=== PATIENT | female | born 1940 | race Caucasian/White ===

== ENCOUNTER → 2021-12-03 | Outpatient (CLI) | payer MEDICARE | LOC: MC.RAD 13:05 | DX: Z12.31 Encounter for screening mammogram for malignant neoplasm of breast (principal) ==

== ENCOUNTER 2022-09-11 07:28 | Day surgery (SDC) | payer MEDICARE ==
[~2022-09-11] VITALS: Ht 157.5 cm; Wt 77.4 kg
[2022-09-11] MEDS ORDERED: LIPITOR 40MG TA40 MG PO (08:17)
[2022-09-11] MEDS ORDERED: HCTZ12.5TAB PO (08:17)
[2022-09-11] MEDS ORDERED: PRINIVIL40 MG PO (08:17)
[2022-09-11] MEDS ORDERED: ASPIRIN E.C. 8181 MG PO (08:18)
[2022-09-11] MEDS ORDERED: FARXIGA10 PO (08:18)
[2022-09-11] MEDS ORDERED: TENORMIN 5050 MG/TAB PO (08:18)
[2022-09-11] MEDS ORDERED: MULTI-VITAMIN W1 TA2 PO (08:19)
[2022-09-11] MEDS ORDERED: ALLEGRA ALLERG180 MG PO (08:19)
[2022-09-11] MEDS ORDERED: TUMS ULTRA ST1000 MG PO (08:20)
[2022-09-11] MEDS ORDERED: TYLENOL 8 HR PO (08:20)
[2022-09-11] MEDS ORDERED: VIACTIV PO (08:20)
[2022-09-11 08:30] VITALS: BP 88/54; PULSE 67; TEMP 96.6
[2022-09-11 09:15] VITALS: BP 94/43; PULSE 73; TEMP 97.3
[2022-09-11 09:30] VITALS: BP 114/59; PULSE 63
--- NOTE | 2022-09-11 10:20 | NUR ---
0915-PT TO BAY 1 PER CART FROM PROCEDURE ROOM. PT AMBULATED TO CHAIR WITH STAND BY ASSISTANCE. VS OBTAINED. REPORT RECEIVED. CALL LIGHT WITHIN REACH. PT DENIES ANY NEEDS AT THIS TIME. 0920-PT TOLERATING WATER AND PUDDING. 0945-IV DC'D AT THIS TIME. PT TOLERATED WELL. PT ABLE TO DRESS SELF WITHOUT ASSISTANCE. 1000-DISCHARGE EDUCATION COMPLETED WITH PT. VERBALIZED UNDERSTANDING OF HOME AND FOLLOW UP CARE. ALL QUESTIONS ANSWERED. DISCHARGE PAPERWORK GIVEN TO PT. 1002-DR JONES AT BEDSIDE DISCUSSING FINDINGS WITH PT. 1020-PT OFF UNIT PER WHEELCHAIR. PT DISCHARGED TO HOME WITH DAUGHTER PER PERSONAL VEHICLE.
== END 2022-09-11 10:20 | disposition home or self-care (01) ==
LOC: SDCO 07:28
DX: Z12.11 Encounter for screening for malignant neoplasm of colon (principal); K57.30 Diverticulosis of large intestine without perforation or abscess without bleeding; E66.9 Obesity, unspecified; K21.9 Gastro-esophageal reflux disease without esophagitis; Z86.010 Personal history of colon polyps
CPT/HCPCS: J2704